=== PATIENT | male | born 1945 | race Two or more races ===

== ENCOUNTER 2017-06-24 16:39 | Outpatient (CLI) | payer OTHER, MEDICARE ==
--- NOTE | 2017-06-24 17:09 | Diagnostic Imaging Report ---
Indication: Cough Technique: XRAY Chest 2v Comparison: None Findings: Heart size and mediastinal contours are within normal limits. There is no focal airspace consolidation, pleural effusion or pneumothorax. There are minimal degenerative changes of the spine. No acute osseous abnormality seen. There is mild eventration of the right hemidiaphragm. Impression: No radiographic evidence of acute cardiopulmonary disease.
== END 2017-06-24 18:39 | disposition home or self-care (01) ==
LOC: RAD 16:39
DX: Z01.818 Encounter for other preprocedural examination (principal); R05 Cough
CPT/HCPCS: 71046

== ENCOUNTER 2019-05-14 12:35 | Outpatient (CLI) | payer MEDICARE, OTHER ==
--- NOTE | 2019-05-14 14:20 | Diagnostic Imaging Report ---
Indication: Cough Technique: XRAY Chest 2v Comparison: 06/24/2017 Findings: The cardiomediastinal silhouette is within normal limits and stable compared to the prior exam. There is no focal consolidation, pneumothorax or pleural effusion. There are degenerative changes of the spine. Osseous structures demonstrate no acute abnormality. Mild eventration of the right hemidiaphragm again noted. Impression: No radiographic evidence of acute cardiopulmonary disease. Specifically, no focal airspace consolidation as questioned clinically.
== END 2019-05-14 14:35 | disposition home or self-care (01) ==
LOC: RAD 12:35
DX: R05 Cough (principal)
CPT/HCPCS: 71046

== ENCOUNTER → 2020-07-11 | Outpatient (CLI) | payer OTHER, MEDICARE ==
--- NOTE | 2020-07-11 15:48 | Diagnostic Imaging Report ---
Indication: Cough Technique: 2 views of the chest Comparison: None Findings: Lungs and pleural spaces are clear. The heart size is normal. The bones are unremarkable. No significant interim change. Impression: Negative
== END | disposition home or self-care (01) ==
LOC: RAD 14:38
DX: Z01.818 Encounter for other preprocedural examination (principal); R05 Cough; Z01.812 Encounter for preprocedural laboratory examination
CPT/HCPCS: 71046